=== PATIENT | female | born 1960 | race African-American/Black ===

== ENCOUNTER → 2018-11-28 | Outpatient (CLI) | payer MEDICARE ==
--- NOTE | 2018-11-28 13:22 | RAD ---
Single view bilateral knee and 3 views right ankle dated 11/28/2018. No comparison available. Clinical data indication: Pain after fall. History of avulsion fracture right ankle. FINDINGS: Standing AP views of bilateral knee show normal bony alignment. No displaced fracture. No significant degenerative changes. No periostitis or bone destruction. 3 views right ankle show normal bony alignment. No displaced fracture. Talar dome is intact. There small curvilinear fragments along the dorsal margin of the talus on the lateral view. Diffuse soft tissue swelling. IMPRESSION: 1. Small curvilinear bone fragments over the dorsal aspect of the talus and the lateral view, nonspecific. This could be related to a small avulsion fracture. 2. No apparent acute abnormality of the knee. Electronically signed by: Rene Mcpherson MD (11/28/2018 1:19 PM) [id number]
== END | disposition home or self-care (01) ==
LOC: RAD 12:25
PROVIDERS: ATTEND Physical Medicine & Rehabilitation
DX: S83.91XA Sprain of unspecified site of right knee, initial encounter (principal); W19.XXXA Unspecified fall, initial encounter; Y93.89 Activity, other specified; Y92.89 Other specified places as the place of occurrence of the external cause; Y99.8 Other external cause status
CPT/HCPCS: 73565; 73610

== ENCOUNTER 2019-01-13 13:53 | Emergency (ER) | payer OTHER, MEDICAID ==
[~2019-01-13] VITALS: Ht 162.6 cm; Wt 99.8 kg
[2019-01-13 14:41] LABS: BASO % 1 % (0-3); EOS # 0.3 x10^3/uL (0.0-0.7); EOS % 3 % (0-3); HEMATOCRIT 38.3 % (36.0-47.0); HEMOGLOBIN 12.5 g/dL (12.0-15.5); LYMPH # 2.2 x10^3/uL (1.0-4.8); LYMPH % 23 % (24-48); MEAN CORPUSCULAR HEMOGLOBIN 30 pg (25-35); MEAN CORPUSCULAR HGB CONC 33 g/dL (31-37); MEAN CORPUSCULAR VOLUME 93 fL (79-100); MONO # 0.7 x10^3/uL (0.0-1.1); MONO % 8 % (0-9); NEUT # 6.2 x10^3uL (1.8-7.7); NEUT % 66 % (31-73); PLATELET COUNT 287 x10^3/uL (140-400); RED BLOOD COUNT 4.12 x10^6/uL (3.50-5.40); RED CELL DISTRIBUTION WIDTH 13.8 % (11.5-14.5); WHITE BLOOD COUNT 9.5 x10^3/uL (4.0-11.0)
[2019-01-13 14:47] LABS: CALCIUM 9.1 mg/dL (8.5-10.1); CREATININE 0.9 mg/dL (0.6-1.0); GFR 77.8; POTASSIUM 3.7 mmol/L (3.5-5.1)
[2019-01-13 14:53] LABS: ALBUMIN 3.4 g/dL (3.4-5.0); ALBUMIN/GLOBULIN RATIO 0.8 (1.0-1.7); TOTAL BILIRUBIN 0.4 mg/dL (0.2-1.0); TOTAL PROTEIN 7.6 g/dL (6.4-8.2)
[2019-01-13 15:30] VITALS: BP 115/93
[2019-01-13] MEDS ORDERED: ACETAMINOPHEN 500 MG TABLET PO ONE (15:30)
--- NOTE | 2019-01-13 15:33 | PHYS DOC ---
Past Medical History Past Medical History: Asthma, Bipolar, GERD, HIV Past Surgical History: Cholecystectomy, Alcohol Use: Occasionally Drug Use: None Adult General Chief Complaint Chief Complaint: SHORTNESS OF BREATH HPI HPI Patient is a 58 year old female presented ER today for evaluation of productive cough with clear sputum, trouble breathing off and on for several days. Patient is a smoker, history of COPD, bronchitis. Patient is not on oxygen at home. She denies any fever, she denies any chest pain. Patient has history of bipolar, HIV. Review of Systems Review of Systems Constitutional: Denies fever or chills [] Eyes: Denies change in visual acuity, redness, or eye pain [] HENT: Denies nasal congestion or sore throat [] Respiratory: Positive for cough and shortness of breath [] Cardiovascular: No additional information not addressed in HPI [] GI: Denies abdominal pain, nausea, vomiting, bloody stools or diarrhea [] : Denies dysuria or hematuria [] Musculoskeletal: Denies back pain or joint pain [] Integument: Denies rash or skin lesions [] Neurologic: Denies headache, focal weakness or sensory changes [] Endocrine: Denies polyuria or polydipsia [] All other systems were reviewed and found to be within normal limits, except as documented in this note. Current Medications Current Medications Current Medications Medications (Trade) Dose Ordered Sig/Ty Start Time Stop Time Status Last Admin Dose Admin Acetaminophen (Tylenol) 1,000 mg 1X ONCE 01/13/19 15:30 01/13/19 15:31 DC 01/13/19 15:37 1,000 MG Allergies Allergies Allergies Coded Allergies Type Severity Reaction Last Updated Verified Fish Containing Products Allergy Severe anaphylaxsis 01/13/19 Yes oxycodone Allergy Severe anaphylaxsis 01/13/19 Yes propoxyphene Allergy Severe anaphylaxsis 01/13/19 Yes shellfish derived Allergy Severe anaphylaxsis 01/13/19 Yes Physical Exam Physical Exam Constitutional: Well developed, well nourished, no acute distress, non-toxic appearance. [] HENT: Normocephalic, atraumatic, bilateral external ears normal, oropharynx moist, no oral exudates, nose normal. [] Eyes: PERRLA, EOMI, conjunctiva normal, no discharge. [] Neck: Normal range of motion, no tenderness, supple, no stridor. [] Cardiovascular:Heart rate regular rhythm, no murmur [] Lungs & Thorax: Bilateral breath sounds clear to auscultation [] Abdomen: Bowel sounds normal, soft, no tenderness, no masses, no pulsatile mass es. [] Skin: Warm, dry, no erythema, no rash. [] Back: No tenderness, no CVA tenderness. [] Extremities: No tenderness, no cyanosis, no clubbing, ROM intact, no edema. [] Neurologic: Alert and oriented X 3, normal motor function, normal sensory function, no focal deficits noted. [] Psychologic: Affect normal, judgement normal, mood normal. [] Current Patient Data Vital Signs Vital Signs Date Time Temp Pulse Resp B/P (MAP) Pulse Ox O2 Delivery O2 Flow Rate FiO2 01/13/19 15:30 88 20 115/93 (100) 97 Room Air 01/13/19 13:58 98.3 98.3 Lab Values Laboratory Tests Test 01/13/19 14:15 White Blood Count 9.5 x10^3/uL (4.0-11.0) Red Blood Count 4.12 x10^6/uL (3.50-5.40) Hemoglobin 12.5 g/dL (12.0-15.5) Hematocrit 38.3 % (36.0-47.0) Mean Corpuscular Volume 93 fL (79-100) Mean Corpuscular Hemoglobin 30 pg (25-35) Mean Corpuscular Hemoglobin Concent 33 g/dL (31-37) Red Cell Distribution Width 13.8 % (11.5-14.5) Platelet Count 287 x10^3/uL (140-400) Neutrophils (%) (Auto) 66 % (31-73) Lymphocytes (%) (Auto) 23 % (24-48) L Monocytes (%) (Auto) 8 % (0-9) Eosinophils (%) (Auto) 3 % (0-3) Basophils (%) (Auto) 1 % (0-3) Neutrophils # (Auto) 6.2 x10^3uL (1.8-7.7) Lymphocytes # (Auto) 2.2 x10^3/uL (1.0-4.8) Monocytes # (Auto) 0.7 x10^3/uL (0.0-1.1) Eosinophils # (Auto) 0.3 x10^3/uL (0.0-0.7) Basophils # (Auto) 0.0 x10^3/uL (0.0-0.2) Sodium Level 141 mmol/L (136-145) Potassium Level 3.7 mmol/L (3.5-5.1) Chloride Level 103 mmol/L (98-107) Carbon Dioxide Level 28 mmol/L (21-32) Anion Gap 10 (6-14) Blood Urea Nitrogen 13 mg/dL (7-20) Creatinine 0.9 mg/dL (0.6-1.0) Estimated GFR (Cockcroft-Gault) 77.8 BUN/Creatinine Ratio 14 (6-20) Glucose Level 108 mg/dL (70-99) H Calcium Level 9.1 mg/dL (8.5-10.1) Total Bilirubin 0.4 mg/dL (0.2-1.0) Aspartate Amino Transferase (AST) 15 U/L (15-37) Alanine Aminotransferase (ALT) 14 U/L (14-59) Alkaline Phosphatase 110 U/L (46-116) Troponin I Quantitative < 0.017 ng/mL (0.000-0.055) YS-Tcn-Q-Type Natriuretic Peptide 33 pg/mL (0-124) Total Protein 7.6 g/dL (6.4-8.2) Albumin 3.4 g/dL (3.4-5.0) Albumin/Globulin Ratio 0.8 (1.0-1.7) L Laboratory Tests 01/13/19 14:15 Laboratory Tests 01/13/19 14:15 EKG EKG [] Radiology/Procedures Radiology/Procedures [][facility] [address] [place] [address] IMAGING REPORT Signed PATIENT: CHRISTY ADAMS ACCOUNT: [id number] : 1960 LOCATION: ER AGE: 58 SEX: F EXAM STATUS: DEP ER ORD. PHYSICIAN: LUANNE YOO DO REASON: SOA, COUGH PROCEDURE: CHEST PA & LATERAL PA and lateral chest. HISTORY: Altered mental status, history of recent stroke, short of air, cough PA and lateral views were taken of the chest. There are distended bowel loops in the left upper quadrant. There are no confluent infiltrates. There is no effusion. Heart is within normal limits in size. IMPRESSION: 1. Distended bowel in the left upper quadrant. 2. No acute infiltrates. Electronically signed by: Coy Corral MD (01/13/2019 4:27 PM) [id number] DICTATED and SIGNED BY: COY CORRAL MD DATE: 01/13/19 7953 Course & Med Decision Making Course & Med Decision Making Pertinent Labs and Imaging studies reviewed. (See chart for details) [] Dragon Disclaimer Dragon Disclaimer This electronic medical record was generated, in whole or in part, using a voice recognition dictation system. Departure Departure Impression: Primary Impression: Bronchitis Disposition: 01 HOME, SELF-CARE Condition: STABLE Referrals: LAURI WU MD (PCP) FOLLOW UP WITH YOUR PCP IN 2 DAYS Patient Instructions: Acute Bronchitis LUANNE YOO DO Jan 13, 2019 15:33
--- NOTE | 2019-01-13 16:30 | RAD ---
PA and lateral chest. HISTORY: Altered mental status, history of recent stroke, short of air, cough PA and lateral views were taken of the chest. There are distended bowel loops in the left upper quadrant. There are no confluent infiltrates. There is no effusion. Heart is within normal limits in size. IMPRESSION: 1. Distended bowel in the left upper quadrant. 2. No acute infiltrates. Electronically signed by: Coy Corral MD (01/13/2019 4:27 PM) [id number]
--- NOTE | 2019-01-15 07:38 | EKG ---
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
== END 2019-01-13 15:40 | disposition home or self-care (01) ==
LOC: ER 13:53
DX: J44.9 Chronic obstructive pulmonary disease, unspecified (principal); K21.9 Gastro-esophageal reflux disease without esophagitis; F31.9 Bipolar disorder, unspecified; F17.200 Nicotine dependence, unspecified, uncomplicated; Z88.5 Allergy status to narcotic agent; Z88.8 Allergy status to other drugs, medicaments and biological substances; Z91.013 Allergy to seafood
CPT/HCPCS: 36415; 71046; 80053; 83880; 84484; 85025; 93005; 99285-25

== ENCOUNTER 2019-03-25 12:41 | Emergency (ER) | payer MEDICARE, MEDICAID ==
[~2019-03-25] VITALS: Ht 162.6 cm; Wt 108.9 kg
[2019-03-25 13:11] LABS: BILIRUBIN,URINE NEGATIVE (NEG); CLARITY,URINE CLEAR; COLOR,URINE YELLOW; NITRITE,URINE NEGATIVE (NEG); PROTEIN,URINE NEGATIVE (NEG-TRACE)
[2019-03-25 13:26] LABS: BACTERIA,URINE FEW /HPF (0-FEW); RBC,URINE 0 /HPF (0-2); SQUAMOUS EPITHELIAL CELL,UR MANY /LPF
[2019-03-25 13:46] LABS: BASO % 0 % (0-3); EOS # 0.2 x10^3/uL (0.0-0.7); EOS % 3 % (0-3); HEMATOCRIT 37.1 % (36.0-47.0); HEMOGLOBIN 12.5 g/dL (12.0-15.5); LYMPH # 2.2 x10^3/uL (1.0-4.8); LYMPH % 30 % (24-48); MEAN CORPUSCULAR HEMOGLOBIN 31 pg (25-35); MEAN CORPUSCULAR HGB CONC 34 g/dL (31-37); MEAN CORPUSCULAR VOLUME 92 fL (79-100); MONO # 0.6 x10^3/uL (0.0-1.1); MONO % 9 % (0-9); NEUT # 4.1 x10^3uL (1.8-7.7); NEUT % 58 % (31-73); PLATELET COUNT 276 x10^3/uL (140-400); RED BLOOD COUNT 4.02 x10^6/uL (3.50-5.40); RED CELL DISTRIBUTION WIDTH 14.8 % (11.5-14.5); WHITE BLOOD COUNT 7.1 x10^3/uL (4.0-11.0)
[2019-03-25 13:59] LABS: CALCIUM 9.1 mg/dL (8.5-10.1); CREATININE 0.8 mg/dL (0.6-1.0); GFR 89.1; POTASSIUM 3.9 mmol/L (3.5-5.1)
[2019-03-25 14:06] LABS: ALBUMIN 3.5 g/dL (3.4-5.0); ALBUMIN/GLOBULIN RATIO 0.9 (1.0-1.7); TOTAL BILIRUBIN 0.5 mg/dL (0.2-1.0); TOTAL PROTEIN 7.3 g/dL (6.4-8.2)
[2019-03-25] MEDS ORDERED: traMADol 50 MG TABLET PO ONE (14:15)
--- NOTE | 2019-03-25 14:15 | PHYS DOC ---
Past Medical History Past Medical History: Asthma, Bipolar, GERD, HIV Additional Past Medical Histor: manic depressive disorder Past Surgical History: Cholecystectomy, Alcohol Use: Occasionally Drug Use: Marijuana Adult General Chief Complaint Chief Complaint: LOWER EXTREMITY EDEMA HPI HPI Patient is a 58 year old HIV, leg swelling on a presents for evaluation of chronic leg swelling. Patient states she's been evaluated by her PCP and referred to her current is for the same condition. She denies worsening of symptoms. Denies chest pain shortness of breath, decreased urinary output. She states she was told to discontinue diuretic urge to wear compression stockings. No other acute symptoms or complaints.] Review of Systems Review of Systems ROS as per HPI All other systems were reviewed and found to be within normal limits, except as documented in this note. Allergies Allergies Allergies Coded Allergies Type Severity Reaction Last Updated Verified Fish Containing Products Allergy Severe anaphylaxsis 01/13/19 Yes oxycodone Allergy Severe anaphylaxsis 01/13/19 Yes propoxyphene Allergy Severe anaphylaxsis 01/13/19 Yes shellfish derived Allergy Severe anaphylaxsis 01/13/19 Yes Iodine and Iodide Containing Produc Adverse Reaction Severe 03/25/19 Yes Physical Exam Physical Exam Constitutional: Well developed, well nourished, no acute distress, non-toxic appearance. [] HENT: Normocephalic, atraumatic, bilateral external ears normal, oropharynx moist, no oral exudates, nose normal. [] Eyes: PERRLA, EOMI, conjunctiva normal, no discharge. [] Neck: Normal range of motion, no tenderness, supple, no stridor. [] Cardiovascular:Heart rate regular rhythm, no murmur, bipedal edema extending from feet to proximal cast, signs. [] Lungs & Thorax: Bilateral breath sounds clear to auscultation [] Neurologic: Alert and oriented X 3, normal motor function, normal sensory function, no focal deficits noted. [] Psychologic: Affect normal, judgement normal, mood normal. [] Current Patient Data Vital Signs Vital Signs Date Time Temp Pulse Resp B/P (MAP) Pulse Ox O2 Delivery O2 Flow Rate FiO2 03/25/19 13:05 98.1 89 21 144/93 (110) 98 Room Air 98.1 Lab Values Laboratory Tests Test 03/25/19 12:49 03/25/19 13:15 Urine Collection Type Unknown Urine Color Yellow Urine Clarity Clear Urine pH 7.0 Urine Specific [place] 1.020 Urine Protein Negative mg/dL (NEG-TRACE) Urine Glucose (UA) Negative mg/dL (NEG) Urine Ketones (Stick) Negative mg/dL (NEG) Urine Blood Negative (NEG) Urine Nitrite Negative (NEG) Urine Bilirubin Negative (NEG) Urine Urobilinogen Dipstick 1.0 mg/dL (0.2 mg/dL) Urine Leukocyte Esterase Small (NEG) Urine RBC 0 /HPF (0-2) Urine WBC 11-20 /HPF (0-4) Urine Squamous Epithelial Cells Many /LPF Urine Transitional Epithelial Cells Few /LPF Urine Bacteria Few /HPF (0-FEW) Urine Mucus Mod /LPF White Blood Count 7.1 x10^3/uL (4.0-11.0) Red Blood Count 4.02 x10^6/uL (3.50-5.40) Hemoglobin 12.5 g/dL (12.0-15.5) Hematocrit 37.1 % (36.0-47.0) Mean Corpuscular Volume 92 fL (79-100) Mean Corpuscular Hemoglobin 31 pg (25-35) Mean Corpuscular Hemoglobin Concent 34 g/dL (31-37) Red Cell Distribution Width 14.8 % (11.5-14.5) H Platelet Count 276 x10^3/uL (140-400) Neutrophils (%) (Auto) 58 % (31-73) Lymphocytes (%) (Auto) 30 % (24-48) Monocytes (%) (Auto) 9 % (0-9) Eosinophils (%) (Auto) 3 % (0-3) Basophils (%) (Auto) 0 % (0-3) Neutrophils # (Auto) 4.1 x10^3uL (1.8-7.7) Lymphocytes # (Auto) 2.2 x10^3/uL (1.0-4.8) Monocytes # (Auto) 0.6 x10^3/uL (0.0-1.1) Eosinophils # (Auto) 0.2 x10^3/uL (0.0-0.7) Basophils # (Auto) 0.0 x10^3/uL (0.0-0.2) Laboratory Tests 03/25/19 13:15 EKG EKG [] Radiology/Procedures Radiology/Procedures [] Course & Med Decision Making Course & Med Decision Making Pertinent Labs and Imaging studies reviewed. (See chart for details) [Patient with swelling seeking second opinion in the emergency department. Basic labs reviewed. Recommend patient follow-up with PCP for consideration of fitting of custom compression stockings. Further management deferred] Dragon Disclaimer Dragon Disclaimer This electronic medical record was generated, in whole or in part, using a voice recognition dictation system. Departure Departure Impression: Primary Impression: Peripheral edema Disposition: 01 HOME, SELF-CARE Condition: STABLE Referrals: LAURI WU MD (PCP) Patient Instructions: Peripheral Edema Additional Instructions: Please continue current medications and follow up with your PCP to discuss custom compression stockings. CAPO THOMAS DO Mar 25, 2019 14:15
[2019-03-25 14:42] VITALS: BP 148/74
--- NOTE | 2019-03-26 08:31 | EKG ---
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
== END 2019-03-25 15:26 | disposition home or self-care (01) ==
LOC: ER 12:41
DX: R60.0 Localized edema (principal); J45.909 Unspecified asthma, uncomplicated; K21.9 Gastro-esophageal reflux disease without esophagitis; Z91.013 Allergy to seafood; Z88.5 Allergy status to narcotic agent; Z88.8 Allergy status to other drugs, medicaments and biological substances
CPT/HCPCS: 36415; 80053; 81001; 83880; 84484; 85025; 87086; 93005; 99285